=== PATIENT | male | born 1960 | race Caucasian/White ===

== ENCOUNTER 2016-10-08 11:32 | Emergency (ER) | payer MEDICARE, OTHER ==
[2016-10-08 11:49] VITALS: BP 143/82
[2016-10-08] MEDS ORDERED: Morphine Sulfate 2 mg/mL 1mL Syr ONE (12:18)
[2016-10-08] MEDS ORDERED: Morphine Sulfate 4 mg/mL 1mL Syr ONE (12:18)
[2016-10-08] MEDS ORDERED: Morphine Sulfate 4 mg/mL 1mL Syr IM ONE (12:23)
[2016-10-08] MEDS ORDERED: Morphine Sulfate 4 mg/mL 1mL Syr IVP ONE (12:23)
--- NOTE | 2016-10-08 12:23 | ED Physician Chart ---
Chief Complaint/HPI - Patient Information Date Seen:: 10/08/16 Time Seen:: 12:15 Chief Complaint:: PAINFUL SKIN RASH LT MID TRUNK X 5DAYS History of Present Illness:: This 55-year-old male noticed increasing pain below his left nipple that then spread around to the back. The onset of symptoms was gradual and began right days ago. The patient has never experienced similar symptoms in the past. 2-3 days ago the patient noticed the the painful area was associated with onset of rash. The patient has had no fever, chills or diaphoresis. She rated the severity of the pain as a 10 over 10 and described it as burning. There were no exacerbating or relieving factors. Allergies:: Allergies Allergy/AdvReac Type Severity Reaction Status Date / Time No Known Allergies Allergy Verified 10/08/16 11:46 Vitals:: Vital Signs - 8 hr 10/08/16 10/08/16 11:48 11:52 Temp 98.3 F HR 71 RR 17 BP 143/82 143/82 Review of Systems - Review of Systems General/Constitutional: No fever, No chills, No weakness, No diaphoresis, No edema Skin: Skin lesions, Rash, No bruising Head: No headache, No light-headedness Eyes: No loss of vision, No pain, No diplopia ENT: No earache, No nasal drainage, No sore throat, No tinnitus Neck: No neck pain, No swelling, No mass noted Cardio Vascular: Chest pain (the patient experienced pain on the left side in a pattern consistent with the fifth thoracic dermatome.), No palpitations, No orthopnea, No edema Pulmonary: No SOB, No cough, No sputum, No wheezing GI: No nausea, No vomiting, No diarrhea, No pain, No hematemesis G/U: No dysuria, No frequency, No hematuria, No nacturia Musculoskeletal: No bone or joint pain, Back pain (the pain radiated around the left side stopping at the midline.) Family Medical History - Family Member Father Ethnicity: Hx Family Cancer: No Hx Family Coronary Artery Disease: No Hx Family Congestive Heart Failure: No Hx Family Hypertension: No Hx Family Stroke: No Hx Family Diabetes: No Hx Family Seizures: No Hx Family AIDS: No Hx Family HIV: No Hx Family COPD: No Hx Family Psychiatric Problems: No Physical Exam - Physical Examination General/Constitutional: Well-developed, well-nourished, Alert, GCS 15, Non- toxic appearing, Ambulatory Other Gen/Cons comments:: Although the patient described his pain as being 10 over 10 severity he did not appear to be in any acute distress. Head: Atraumatic Eyes: Lids, conjuctiva normal, PERRL, EOMI Other Eyes comments:: No nystagmus present. Other Skin comments:: The patient had a hemorrhagic and somewhat vesicular rash in the distribution of the fifth left thoracic dermatome on the anterior and posterior chest corbin. The rash was very consistent with acute herpes zoster. ENMT: External ears, nose nl, Nasal exam nl, Lips, teeth, gums nl, Oropharynx nl , Tonsils nl Other ENMT comments:: Excellent oral hygiene. Neck: Nontender, Full ROM w/o pain, No JVD, No nuchal rigidity Respiratory: Nl effort/Exclusion, Clear to Auscultation, No Wheeze/Rhonchi/Rales Cardio Vascular: RRR, No murmur, gallop, rubs, NL S1 S2 Other Cardio Vascular comments:: Good peripheral pulses in all 4 extremities. GI: No tenderness/rebounding/guarding, No organomegaly, No hernia, Normal BS's, No mass/bruits, No McBurney tenderness Other GI comments:: The abdomen was mildly distended secondary to obesity. Rectal examination was deferred at my discretion. : No CVA tenderness, NL external genitalia Extremities: No tenderness or effusion, Full ROM, normal strength in all extremities, No edema Neuro/Psych: Alert/oriented, DTR's symmetric, Normal sensory exam, Normal motor strength, Judgement/insight normal, Mood normal, Normal gait, No focal deficits Misc: No paraspinal tenderness Other Misc comments:: The back was normal with no spinal tenderness except for the rash on the left side in the T5 dermatome. Labs/Radiology/EKG Results - Lab Results Results: No radiographic or laboratory studies were indicated. Assessment - Assessment General Assessment: CASE SUMMARY: A 55-year-old male presented with a five-day history of progressive rash which started as increased sensitivity and tenderness in the T5 dermatome on the left side with progression to the outbreak of a rash. The rash was both hemorrhagic and vesicular in the left T5 dermatome. It did not cross the midline. The balance of the patient's physical examination was unremarkable. No laboratory or radiographic studies were obtained. Patient was placed on acyclovir 800 mg 5 times a day, prednisone 20 mg twice a day for a seven-day course. His acute pain was treated with IM morphine with good relief. He was discharged with a prescription for Gould 10/, dispense 15 to be taken one every 6 hours as needed for severe pain. He was given the usual precautions regarding mixing the Gould with alcohol or taking it within [address] her activities requiring alertness. Patient will follow-up with his primary care physician this coming week. He was further devise to return to the emergency department for any significant worsening of symptoms or onset of new symptoms which were not addressed in the ED. MDM: DDX for painful rash. NOT acute sunburn based on history and physical exam. NOT scabies based on history and physical examination. NOT oxygen shock syndrome based on the patient's history and physical examination. NOT cellulitis based on the patient's history and physical examination. ED Septic Shock - . Is Septic Shock (SBP<90, OR Lactate>4 mmol\L) present?: No - <6hrs of presentation: Vital Signs: Vital Signs - 8 hr 10/08/16 10/08/16 11:48 11:52 Temp 98.3 F HR 71 RR 17 BP 143/82 143/82 ED Discharge Plan - Patient Disposition Instructions: [id number] Accepting Physician: Jf Carpenter [Courtesy] -
== END 2016-10-08 13:20 | disposition home or self-care (01) ==
LOC: ER 11:32
DX: R21 Rash and other nonspecific skin eruption (principal)
CPT/HCPCS: J2270; Z7502